=== PATIENT | female | born 1980 | race Caucasian/White ===

== ENCOUNTER → 2017-07-17 | Emergency (ER) | payer MEDICAID, OTHER ==
[~2017-07-17] VITALS: Ht 162.6 cm; Wt 99.8 kg
[~2017-07-17] MED LIST: ANTACID SUSP 30 ML UDC (MYLANTA) PO ONE; ASPIRIN 81 MG CHEW (CHILDREN'S ASA) PO ONE; KCL 10 MEQ TAB (MICRO K) PO ONE; LIDOCAINE 2% VISCOUS 15 ML UDC PO ONE; OMEP20TA7 PO
[2017-07-17 01:48] VITALS: BP 138/85
[2017-07-17 02:17] LABS: BASOPHILS % (AUTO) 1 % (0-10); EOSINOPHILS # (AUTO) 0.2 10^3/uL (0.0-0.3); EOSINOPHILS % (AUTO) 2 % (0-10); HEMATOCRIT 38 % (35-52); HEMOGLOBIN 12.6 G/DL (11.5-16.0); LYMPHOCYTES # (AUTO) 3.1 X 10^3 (1.0-4.0); LYMPHOCYTES % (AUTO) 37 % (12-44); MEAN CORPUSCULAR HEMOGLOBIN 31 PG (25-34); MEAN CORPUSCULAR HGB CONC 33 G/DL (32-36); MEAN CORPUSCULAR VOLUME 92 FL (80-99); MEAN PLATELET VOLUME 11.2 FL (7.4-10.4); MONOCYTES # (AUTO) 0.5 X 10^3 (0.0-1.0); MONOCYTES % (AUTO) 6 % (0-12); NEUTROPHILS # (AUTO) 4.5 X 10^3 (1.8-7.8); NEUTROPHILS % (AUTO) 55 % (42-75); PLATELET COUNT 200 10^3/uL (130-400); RED CELL DISTRIBUTION WIDTH 12.3 % (10.0-14.5); WHITE BLOOD COUNT 8.3 10^3/uL (4.3-11.0)
[2017-07-17 02:20] LABS: PROTHROMBIN TIME PATIENT 13.1 SEC (12.2-14.7)
[2017-07-17 02:32] LABS: ALANINE AMINOTRANSFERASE 10 U/L (0-55); ALBUMIN 3.5 GM/DL (3.2-4.5); ALKALINE PHOSPHATASE 78 U/L (40-136); BILIRUBIN,TOTAL 0.2 MG/DL (0.1-1.0); BUN/CREATININE RATIO 11; CALCIUM 8.5 MG/DL (8.5-10.1); CARBON DIOXIDE 23 MMOL/L (21-32); CHLORIDE 108 MMOL/L (98-107); CREATININE SERUM 0.81 MG/DL (0.60-1.30); GFR ESTIMATED > 60; GLUCOSE 89 MG/DL (70-105); LIPASE 8 U/L (8-78); MAGNESIUM 1.8 MG/DL (1.8-2.4); POTASSIUM 3.3 MMOL/L (3.6-5.0); SODIUM 142 MMOL/L (135-145); TOTAL PROTEIN 6.6 GM/DL (6.4-8.2)
[2017-07-17 02:38] LABS: MYOGLOBIN SERUM 35.8 NG/ML (10.0-92.0)
--- NOTE | 2017-07-17 02:58 | ED Chest Pain ---
General Chief Complaint: Chest Pain Stated Complaint: CHEST TIGHT-PRESSURE,COUGHING Source: patient Exam Limitations: no limitations History of Present Illness Time seen by provider: 01:53 Initial Comments This 37-year-old woman presents to the emergency room with atypical chest pain described as a heaviness or tightness originating in the epigastrium and pushing up toward the throat. The pain is intermittent and she does not identify any exacerbating or alleviating factors. She does not notice it as much when she is up and active. She does take Tums for GERD and states that sometimes helps. She also had some back pain for which she took ibuprofen. She states ibuprofen did help with the back pain but not the chest and epigastric pain. She admits to tobacco use. Allergies and Home Medications Allergies Coded Allergies: No Known Drug Allergies (Unverified , 07/17/17) Home Medications Omeprazole 20 Mg Tablet.dr, 20 MG PO BID, #60 Prescribed by: JENNA SIEGEL on 07/17/17 0258 Review of Systems Constitutional: no symptoms reported EENTM: No Symptoms Reported Respiratory: See HPI Cardiovascular: See HPI Gastrointestinal: See HPI Genitourinary: No Symptoms Reported Musculoskeletal: no symptoms reported Skin: no symptoms reported Psychiatric/Neurological: No Symptoms Reported Endocrine: No Symptoms Reported Past Qveatbd-Ngcrbs-Ufxiun Hx Patient Social History Recent Foreign Travel: No Contact w/Someone Who Travel: No Surgeries Surgeries: Breast (biopsy), Hysterectomy, Tubal Ligation Respiratory History of Respiratory Disorde: Yes (tobaccoism) Cardiovascular History of Cardiac Disorders: Yes Cardiac Disorders: Valvular Heart Disease (mitral valve prolapse) Neurological History of Neurological Disord: No Reproductive System : No [facility] [employer] [facility] History: Hysterectomy Genitourinary History of Genitourinary Disor: No Gastrointestinal History of Gastrointestinal Di: Yes Gastrointestinal Disorders: Gastroesophageal Reflux Musculoskeletal History of Musculoskeletal Dis: No Endocrine History of Endocrine Disorders: No HEENT History of HEENT Disorders: No Cancer History of Cancer: No Psychosocial History of Psychiatric Problem: No Integumentary History of Skin or Integumenta: No Family Medical History Significant Family History: Heart Disease, Cancer Physical Exam Vital Signs Capillary Refill : General Appearance: No Apparent Distress, WD/WN HEENT: PERRL/EOMI, Normal ENT Inspection, Pharynx Normal Neck: Normal Inspection Respiratory: Chest Non Tender, Lungs Clear, Normal Breath Sounds, No Accessory Muscle Use, No Respiratory Distress Cardiovascular: Regular Rate, Rhythm, No Edema, No Murmur Gastrointestinal: Normal Bowel Sounds, Non Tender, Soft Extremity: Normal Capillary Refill, Normal Inspection, Non Tender, No Calf Tenderness, No Pedal Edema, Other (negative Alonso) Neurologic/Psychiatric: Alert, Oriented x3, No Motor/Sensory Deficits, Normal Mood/Affect, 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 Skin: Normal Color, Warm/Dry Progress/Results/Core Measures Results/Orders Lab Results Laboratory Tests Test 07/17/17 01:55 Range/Units White Blood Count 8.3 4.3-11.0 10^3/uL Red Blood Count 4.10 L 4.35-5.85 10^6/uL Hemoglobin 12.6 11.5-16.0 G/DL Hematocrit 38 35-52 % Mean Corpuscular Volume 92 80-99 FL Mean Corpuscular Hemoglobin 31 25-34 PG Mean Corpuscular Hemoglobin Concent 33 32-36 G/DL Red Cell Distribution Width 12.3 10.0-14.5 % Platelet Count 200 130-400 10^3/uL Mean Platelet Volume 11.2 H 7.4-10.4 FL Neutrophils (%) (Auto) 55 42-75 % Lymphocytes (%) (Auto) 37 12-44 % Monocytes (%) (Auto) 6 0-12 % Eosinophils (%) (Auto) 2 0-10 % Basophils (%) (Auto) 1 0-10 % Neutrophils # (Auto) 4.5 1.8-7.8 X 10^3 Lymphocytes # (Auto) 3.1 1.0-4.0 X 10^3 Monocytes # (Auto) 0.5 0.0-1.0 X 10^3 Eosinophils # (Auto) 0.2 0.0-0.3 10^3/uL Basophils # (Auto) 0.0 0.0-0.1 10^3/uL Prothrombin Time 13.1 12.2-14.7 SEC INR Comment 1.0 0.8-1.4 Activated Partial Thromboplast Time 30 24-35 SEC Sodium Level 142 135-145 MMOL/L Potassium Level 3.3 L 3.6-5.0 MMOL/L Chloride Level 108 H 98-107 MMOL/L Carbon Dioxide Level 23 21-32 MMOL/L Anion Gap 11 5-14 MMOL/L Blood Urea Nitrogen 9 7-18 MG/DL Creatinine 0.81 0.60-1.30 MG/DL Estimat Glomerular Filtration Rate > 60 BUN/Creatinine Ratio 11 Glucose Level 89 70-105 MG/DL Calcium Level 8.5 8.5-10.1 MG/DL Magnesium Level 1.8 1.8-2.4 MG/DL Total Bilirubin 0.2 0.1-1.0 MG/DL Aspartate Amino Transf (AST/SGOT) 11 5-34 U/L Alanine Aminotransferase (ALT/SGPT) 10 0-55 U/L Alkaline Phosphatase 78 40-136 U/L Myoglobin 35.8 10.0-92.0 NG/ML Troponin I < 0.30 <0.30 NG/ML Total Protein 6.6 6.4-8.2 GM/DL Albumin 3.5 3.2-4.5 GM/DL Lipase 8 8-78 U/L My Orders Orders - JENNA MOSES MD Cbc With Automated Diff (07/17/17 02:06) Magnesium (07/17/17 02:06) Chest 1 View, Ap/Pa Only (07/17/17 02:06) Ekg Tracing (07/17/17 02:06) Cardiac Profile 1 (07/17/17 02:06) Comprehensive Metabolic Panel (07/17/17 02:06) Myoglobin Serum (07/17/17 02:06) Protime With Inr (07/17/17 02:06) Partial Thromboplastin Time (07/17/17 02:06) O2 (07/17/17 02:06) Monitor-Rhythm Ecg Trace Only (07/17/17 02:06) Lipid Panel (07/18/17 06:00) Saline Lock/Iv-Start (07/17/17 02:06) Lipase (07/17/17 02:06) Aspirin Chewable Tablet (Baby Aspirin Ch (07/17/17 02:15) Lidocaine 2% Viscous 15 Ml (Xylocaine Vi (07/17/17 02:15) Antacid Suspension (Mylanta Suspension (07/17/17 02:15) Potassium Chloride (Tablet) (Klor Con Ta (07/17/17 02:45) Medications Given in ED Current Medications Medications Dose Ordered Sig/Bertha Route Start Time Stop Time Status Last Admin Dose Admin Al Hydrox/Mg Hydrox/Simethicone 30 ml ONCE ONCE PO 07/17/17 02:15 07/17/17 02:16 DC 07/17/17 02:12 30 ML Aspirin 324 mg ONCE ONCE PO 07/17/17 02:15 07/17/17 02:16 DC 07/17/17 02:12 324 MG Lidocaine HCl 15 ml ONCE ONCE PO 07/17/17 02:15 07/17/17 02:16 DC 07/17/17 02:12 15 ML Progress Note : Progress Note Workup was unremarkable except for mild hypokalemia. Potassium was replaced orally. GI cocktail was administered which resulted in notable improvement in chest pain and epigastric tenderness on reexamination. Patient's symptoms appear consistent with acid reflux and gastritis, and she was treated accordingly. Discharge instructions were reviewed. She was encouraged to follow up with a primary care provider as soon as possible. ECG Initial ECG Impression Date: Jul 17, 2017 Initial ECG Impression Time: 01:53 Initial ECG Rate: 92 Initial ECG Rhythm: Normal Sinus Initial ECG Intervals: Normal Initial ECG Impression: Normal Comment Normal sinus rhythm with no ST elevation or depression. No abnormal intervals or axis deviation. Diagnostic Imaging Diagonstic Imaging: Xray Plain Films/CT/US/NM/MRI: chest Comments Chest x-ray was viewed by me. Report as yet available. No acute abnormalities were appreciated. Departure Impression Impression: Primary Impression: Atypical chest pain Additional Impressions: Epigastric pain GERD (gastroesophageal reflux disease) Qualified Codes: K21.9 - Gastro-esophageal reflux disease without esophagitis Disposition: 01 HOME, SELF-CARE Condition: Improved Departure-Patient Inst. Decision time for Depature: 02:50 Referrals: NO,LOCAL PHYSICIAN (PCP) Primary Care Physician [facility] Patient Instructions: Chest Pain That Is Not Caused by the Heart (DC), Acid Reflux (Gastroesophageal Reflux Disease), Adult (DC) Add. Discharge Instructions: Take omeprazole as prescribed for at least 2 weeks. Avoid the following: Eating large meals, eating close to bedtime, alcohol, caffeine, carbonation, chocolate, tobacco products, tomato products, citrus fruits and juices, mints, spicy foods, fatty or greasy foods, NSAID medications (ibuprofen, naproxen, Aleve, etc.), or anything else you know irritates your stomach. Return to the ER if symptoms worsen. You may take Tylenol (acetaminophen). You may also take Tums along with omeprazole. Follow-up with a primary care provider in 1 to 2 weeks. All discharge instructions reviewed with patient and/or family. Voiced understanding. Scripts Omeprazole (Omeprazole) 20 Mg Tablet. 20 MG PO BID, #60 TAB Prov: JENNA MOSES MD 07/17/17 JENNA MOSES MD Jul 17, 2017 02:57
--- NOTE | 2017-07-17 07:36 | Diagnostic Imaging Report ---
INDICATION: Cough, congestion FINDINGS: The lungs are clear. The heart and vessels normal. IMPRESSION: Negative. Dictated by: Dictated on workstation # [id number]
== END | disposition home or self-care (01) ==
LOC: ER 01:45
DX: R07.89 Other chest pain (principal); K21.9 Gastro-esophageal reflux disease without esophagitis; Z90.710 Acquired absence of both cervix and uterus; Z98.51 Tubal ligation status; Z82.49 Family history of ischemic heart disease and other diseases of the circulatory system
CPT/HCPCS: 36415; 71045; 80053; 83690; 83735; 83874; 84484; 85025; 85610; 85730; 93005; 93041

== ENCOUNTER 2018-07-05 21:42 | Emergency (ER) | payer MEDICAID ==
[~2018-07-05] VITALS: Ht 162.6 cm; Wt 113.4 kg
[~2018-07-05 21:42] MED LIST changes: -ANTACID SUSP 30 ML UDC (MYLANTA) PO ONE; -ASPIRIN 81 MG CHEW (CHILDREN'S ASA) PO ONE; -KCL 10 MEQ TAB (MICRO K) PO ONE; -LIDOCAINE 2% VISCOUS 15 ML UDC PO ONE
[2018-07-05] MEDS ORDERED: LACTATED RINGERS 1,000 ML IV ONE (22:35)
[2018-07-05] MEDS ORDERED: FAMOTIDINE 20 MG (PEPCID) TABLET PO STA (22:35)
--- NOTE | 2018-07-05 22:41 | ED Abdominal Pain ---
General Chief Complaint: Abdominal/GI Problems Stated Complaint: UPPER ABD PAIN AND SWELLING Nursing Triage Note: UPPER ABDOMINAL PRESSURE, REFLUX. Sepsis Screen: No Definite Risk Source of Information: Patient, Other Exam Limitations: No Limitations History of Present Illness Date Seen by Provider: Jul 05, 2018 Time Seen by Provider: 22:28 Initial Comments Patient presents to ER by private conveyance with chief complaint that she's having some midepigastric abdominal pain for the past day that is progressively getting worse. She says it is difficult for her to lie down and sit up or bend over. She says she's been having these intermittent pain for the past 3 or 4 months. She is obese, has a hysterectomy secondary to hemorrhage and 38 years old. Other than her transvaginal hysterectomy and she's had no other abdominal surgeries. She presented a few months ago for this same pain and at that time she was told that it was GERD and was put on an antacid which helped for a couple months and she stopped taking it. She's not taken any antacids recently. She's not taken any Tylenol or Motrin for her pain. She rates it as severe worse with movement. She denies alcohol consumption or history of pancreatitis. She denies diabetes or other medical history but does not follow with any primary care doctor. She did not follow up for EGD or colonoscopy. She denies fevers cough shortness of breath. Allergies and Home Medications Allergies Coded Allergies: Sulfa (Sulfonamide Antibiotics) (Verified Allergy, Unknown, 07/05/18) Home Medications Unable to Obtain Active Prescriptions or Reported Meds Patient Home Medication List Home Medication List Reviewed: Yes Review of Systems Review of Systems Constitutional: No chills, No fever; malaise EENTM: No Blurred Vision, No Double Vision Respiratory: Denies Cough, Denies Shortness of Air Cardiovascular: Denies Chest Pain, Denies Edema Gastrointestinal: See HPI, Abdomen Distended, Abdominal Pain; Denies Constipated, Denies Diarrhea; Nausea; Denies Poor Appetite, Denies Poor Fluid Intake, Denies Vomiting Genitourinary: Denies Burning, Denies Discharge Musculoskeletal: No back pain, No joint pain Skin: No pruritus, No rash Psychiatric/Neurological: Denies Headache, Denies Numbness Past Hwkdkca-Ecotvl-Xdxzok Hx Patient Social History Alcohol Use: Denies Use Recreational Drug Use: No Smoking Status: Current Everyday Smoker Type Used: Cigarettes Recent Foreign Travel: No Contact w/Someone Who Travel: No Recent Infectious Disease Expo: No Recent Hopitalizations: No Immunizations Up To Date Tetanus Booster (TDap): Unknown Seasonal Allergies Seasonal Allergies: No Past Medical History Surgeries: Yes Breast, Hysterectomy, Tubal Ligation Respiratory: No Cardiac: Yes Valvular Heart Disease Neurological: No : 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 oz. 113.671615nm; BMI Method:Stated General Appearance: WD/WN, no apparent distress HEENT: PERRL/EOMI, normal ENT inspection, TMs normal, pharynx normal Neck: non-tender, full range of motion, supple, normal inspection Respiratory: chest non-tender, lungs clear, normal breath sounds, no respiratory distress, no accessory muscle use Cardiovascular: normal peripheral pulses, regular rate, rhythm Peripheral Pulses: 2+ Radial Pulses (R), 2+ Radial Pulses (L) Gastrointestinal: normal bowel sounds, soft, tenderness Progress/Results/Core Measures Results/Orders Lab Results Laboratory Tests Test 07/05/18 22:40 07/05/18 22:45 Range/Units Urine Color YELLOW Urine Clarity CLEAR Urine pH 6 5-9 Urine Specific [facility] 1.015 L 1.016-1.022 Urine Protein NEGATIVE NEGATIVE Urine Glucose (UA) NEGATIVE NEGATIVE Urine Ketones NEGATIVE NEGATIVE Urine Nitrite NEGATIVE NEGATIVE Urine Bilirubin NEGATIVE NEGATIVE Urine Urobilinogen NORMAL NORMAL MG/DL Urine Leukocyte Esterase 2+ H NEGATIVE Urine RBC (Auto) NEGATIVE NEGATIVE Urine RBC 0-5 /HPF Urine WBC 2-5 /HPF Urine Squamous Epithelial Cells 0-2 /HPF Urine Crystals NONE /LPF Urine Bacteria NONE /HPF Urine Casts NONE /LPF Urine Mucus NEGATIVE /LPF Urine Trichomonas FEW H /HPF Urine Culture Indicated NO Urine Opiates Screen NEGATIVE NEGATIVE Urine Oxycodone Screen NEGATIVE NEGATIVE Urine Methadone Screen NEGATIVE NEGATIVE Urine Propoxyphene Screen NEGATIVE NEGATIVE Urine Barbiturates Screen NEGATIVE NEGATIVE Ur Tricyclic Antidepressants Screen NEGATIVE NEGATIVE Urine Phencyclidine Screen NEGATIVE NEGATIVE Urine Amphetamines Screen POSITIVE H NEGATIVE Urine Methamphetamines Screen POSITIVE H NEGATIVE Urine Benzodiazepines Screen NEGATIVE NEGATIVE Urine Cocaine Screen NEGATIVE NEGATIVE Urine Cannabinoids Screen NEGATIVE NEGATIVE White Blood Count 8.8 4.3-11.0 10^3/uL Red Blood Count 4.46 4.35-5.85 10^6/uL Hemoglobin 13.1 11.5-16.0 G/DL Hematocrit 39 35-52 % Mean Corpuscular Volume 88 80-99 FL Mean Corpuscular Hemoglobin 29 25-34 PG Mean Corpuscular Hemoglobin Concent 34 32-36 G/DL Red Cell Distribution Width 13.1 10.0-14.5 % Platelet Count 233 130-400 10^3/uL Mean Platelet Volume 11.0 H 7.4-10.4 FL Neutrophils (%) (Auto) 61 42-75 % Lymphocytes (%) (Auto) 31 12-44 % Monocytes (%) (Auto) 7 0-12 % Eosinophils (%) (Auto) 1 0-10 % Basophils (%) (Auto) 0 0-10 % Neutrophils # (Auto) 5.4 1.8-7.8 X 10^3 Lymphocytes # (Auto) 2.8 1.0-4.0 X 10^3 Monocytes # (Auto) 0.6 0.0-1.0 X 10^3 Eosinophils # (Auto) 0.1 0.0-0.3 10^3/uL Basophils # (Auto) 0.0 0.0-0.1 10^3/uL Prothrombin Time 13.1 12.2-14.7 SEC INR Comment 1.0 0.8-1.4 Activated Partial Thromboplast Time 34 24-35 SEC Sodium Level 139 135-145 MMOL/L Potassium Level 3.7 3.6-5.0 MMOL/L Chloride Level 105 98-107 MMOL/L Carbon Dioxide Level 21 21-32 MMOL/L Anion Gap 13 5-14 MMOL/L Blood Urea Nitrogen 9 7-18 MG/DL Creatinine 0.85 0.60-1.30 MG/DL Estimat Glomerular Filtration Rate > 60 BUN/Creatinine Ratio 11 Glucose Level 98 70-105 MG/DL Calcium Level 9.1 8.5-10.1 MG/DL Corrected Calcium 8.9 8.5-10.1 MG/DL Magnesium Level 2.4 1.8-2.4 MG/DL Total Bilirubin 0.5 0.1-1.0 MG/DL Aspartate Amino Transf (AST/SGOT) 15 5-34 U/L Alanine Aminotransferase (ALT/SGPT) 26 0-55 U/L Alkaline Phosphatase 103 40-136 U/L Total Protein 8.1 6.4-8.2 GM/DL Albumin 4.2 3.2-4.5 GM/DL Lipase 11 8-78 U/L Serum Test, Qualitative NEGATIVE NEGATIVE Serum Alcohol < 10 <10 MG/DL My Orders Orders - AJAY BROTHERS Alcohol (07/05/18 22:35) Cbc With Automated Diff (07/05/18 22:35) Comprehensive Metabolic Panel (07/05/18 22:35) Drug Screen Stat (Urine) (07/05/18 22:35) Hcg,Qualitative Serum (07/05/18 22:35) Lipase (07/05/18 22:35) Magnesium (07/05/18 22:35) Protime With Inr (07/05/18 22:35) Partial Thromboplastin Time (07/05/18 22:35) Ua Culture If Indicated (07/05/18 22:35) Ct Abdomen/Pelvis W (07/05/18 22:35) Chest Pa/Lat (2 View) (07/05/18 22:35) Saline Lock/Iv-Start (07/05/18 22:35) Lactated Ringers (Lr 1000 Ml Iv Solution (07/05/18 22:35) Ondansetron Injection (Zofran Injectio (07/05/18 22:45) Ketorolac Injection (Toradol Injection) (07/05/18 22:45) Lidocaine 2% Viscous 15 Ml (Xylocaine Vi (07/05/18 22:45) Famotidine Tablet (Pepcid Tablet) (07/05/18 22:35) Antacid Suspension (Mylanta Suspension (07/05/18 22:45) Iohexol Injection (Omnipaque 350 Mg/Ml 1 (07/05/18 23:45) Ns (Ivpb) (Sodium Chloride 0.9%) (07/05/18 23:45) Medications Given in ED Current Medications Medications Dose Ordered Sig/Bertha Route Start Time Stop Time Status Last Admin Dose Admin Al Hydrox/Mg Hydrox/Simethicone 30 ml ONCE ONCE PO 07/05/18 22:45 07/05/18 22:46 DC 07/05/18 22:47 30 ML Iohexol 100 ml ONCE ONCE IV 07/05/18 23:45 07/05/18 23:46 UNV 07/05/18 23:42 100 ML Ketorolac Tromethamine 30 mg ONCE ONCE IVP 07/05/18 22:45 07/05/18 22:46 DC 07/05/18 22:47 30 MG Lactated Ringer's 1,000 ml @ 0 mls/hr Q0M ONCE IV 07/05/18 22:35 07/05/18 22:39 DC 07/05/18 22:47 0 MLS/HR Lidocaine HCl 15 ml ONCE ONCE PO 07/05/18 22:45 07/05/18 22:46 DC 07/05/18 22:47 15 ML Ondansetron HCl 4 mg ONCE ONCE IVP 07/05/18 22:45 07/05/18 22:46 DC 07/05/18 22:47 4 MG Sodium Chloride 80 ml ONCE ONCE IV 07/05/18 23:45 07/05/18 23:46 UNV 07/05/18 23:42 80 ML Vital Signs/I&O 07/05/18 07/05/18 22:15 22:47 Temp 98.8 98.8 Pulse 97 Resp 18 B/P (MAP) 166/99 (121) Pulse Ox 98 O2 Delivery Room Air Blood Pressure Mean: 121 Progress Progress Note : Time: 23:52 Progress Note Differential includes pancreatic head as versus gallbladder versus peptic ulcer disease. CT, GI cocktail, Toradol, Zofran and labs and urine. Urine drug screen. Past history of methamphetamine use. Diagnostic Imaging Diagonstic Imaging: CT (with contrast) Plain Films/CT/US/NM/MRI: abdomen, pelvis Comments No acute intra-abdominal process noted. Appendix not well visualized but no secondary signs of appendicitis. Reviewed: Reviewed by Me Departure Impression Primary Impression: Methamphetamine abuse Additional Impression: Acute abdominal pain Disposition: 01 HOME, SELF-CARE Condition: Improved Departure-Patient Inst. Decision time for Depature: 23:54 Referrals: NO,LOCAL PHYSICIAN (PCP/Family) Primary Care Physician Patient Instructions: Acute Abdomen (Belly Pain), Adult (DC), LOCAL PHYSICIAN LIST Add. Discharge Instructions: Tylenol, Motrin and rest. If your abdominal pain has not resolved in the next few days follow-up with a primary care doctor to consider getting set up for ultrasound. All discharge instructions reviewed with patient and/or family. Voiced understanding. Scripts Unable to Obtain Active Prescriptions or Reported Meds AJAY BROTHERS Jul 05, 2018 22:41
[2018-07-05] MEDS ORDERED: ONDANSETRON 4 MG/2 ML (SDV) Z0FRAN IVP ONE (22:45)
[2018-07-05] MEDS ORDERED: ANTACID SUSP 30 ML UDC (MYLANTA) PO ONE (22:45)
[2018-07-05] MEDS ORDERED: LIDOCAINE 2% VISCOUS 15 ML UDC PO ONE (22:45)
[2018-07-05] MEDS ORDERED: KETOROLAC 30 MG/ML VIAL IVP ONE (22:45)
[2018-07-05 22:56] LABS: BASOPHILS % (AUTO) 0 % (0-10); EOSINOPHILS # (AUTO) 0.1 10^3/uL (0.0-0.3); EOSINOPHILS % (AUTO) 1 % (0-10); HEMATOCRIT 39 % (35-52); HEMOGLOBIN 13.1 G/DL (11.5-16.0); LYMPHOCYTES # (AUTO) 2.8 X 10^3 (1.0-4.0); LYMPHOCYTES % (AUTO) 31 % (12-44); MEAN CORPUSCULAR HEMOGLOBIN 29 PG (25-34); MEAN CORPUSCULAR HGB CONC 34 G/DL (32-36); MEAN CORPUSCULAR VOLUME 88 FL (80-99); MONOCYTES # (AUTO) 0.6 X 10^3 (0.0-1.0); MONOCYTES % (AUTO) 7 % (0-12); NEUTROPHILS # (AUTO) 5.4 X 10^3 (1.8-7.8); NEUTROPHILS % (AUTO) 61 % (42-75); PLATELET COUNT 233 10^3/uL (130-400); RED BLOOD COUNT 4.46 10^6/uL (4.35-5.85); RED CELL DISTRIBUTION WIDTH 13.1 % (10.0-14.5); WHITE BLOOD COUNT 8.8 10^3/uL (4.3-11.0)
[2018-07-05 22:56] LABS: BILIRUBIN,URINE NEGATIVE (NEGATIVE); CLARITY,URINE CLEAR; COLOR,URINE YELLOW; GLUCOSE, URINE (UA) NEGATIVE (NEGATIVE); KETONES,URINE NEGATIVE (NEGATIVE); LEUKOCYTE ESTERASE ,URINE 2+ (NEGATIVE); NITRITE,URINE NEGATIVE (NEGATIVE); PH,URINE 6 (5-9); PROTEIN,URINE NEGATIVE (NEGATIVE); UROBILINOGEN,URINE NORMAL (NORMAL)
[2018-07-05 23:03] LABS: RBC,URINE 0-5 /HPF
[2018-07-05 23:04] LABS: SQUAMOUS EPITHELIAL CELL,UR 0-2 /HPF; TRICHOMONAS,URINE FEW /HPF
[2018-07-05 23:08] LABS: PROTHROMBIN TIME PATIENT 13.1 SEC (12.2-14.7)
[2018-07-05 23:08] LABS: AMPHETAMINE SCREEN, URINE POSITIVE (NEGATIVE); BARBITURATE SCREEN URINE NEGATIVE (NEGATIVE); BENZODIAZEPINES SCREEN URINE NEGATIVE (NEGATIVE); CANNABINOID SCREEN, URINE NEGATIVE (NEGATIVE); COCAINE SCREEN URINE NEGATIVE (NEGATIVE); METHADONE STAT NEGATIVE (NEGATIVE); METHAMPHETAMINE SCREEN URINE S POSITIVE (NEGATIVE); OPIATE SCREEN URINE NEGATIVE (NEGATIVE); OXYCODONE STAT NEGATIVE (NEGATIVE); PROPOXYPHENE STAT NEGATIVE (NEGATIVE); TRICYCLIC ANTIDEPRESSANTS SCRE NEGATIVE (NEGATIVE)
[2018-07-05 23:19] LABS: ALANINE AMINOTRANSFERASE 26 U/L (0-55); ALBUMIN 4.2 GM/DL (3.2-4.5); ALKALINE PHOSPHATASE 103 U/L (40-136); BILIRUBIN,TOTAL 0.5 MG/DL (0.1-1.0); BUN/CREATININE RATIO 11; CALCIUM 9.1 MG/DL (8.5-10.1); CARBON DIOXIDE 21 MMOL/L (21-32); CHLORIDE 105 MMOL/L (98-107); CREATININE SERUM 0.85 MG/DL (0.60-1.30); GFR ESTIMATED > 60; GLUCOSE 98 MG/DL (70-105); LIPASE 11 U/L (8-78); MAGNESIUM 2.4 MG/DL (1.8-2.4); POTASSIUM 3.7 MMOL/L (3.6-5.0); SODIUM 139 MMOL/L (135-145); TOTAL PROTEIN 8.1 GM/DL (6.4-8.2)
[2018-07-05] MEDS ORDERED: IOHEXOL 350 MG/ML 100 ML (OMNIPAQUE 350) VIAL IV ONE (23:45)
[2018-07-05] MEDS ORDERED: NS 250 ML (IVPB) BAG IV ONE (23:45)
[2018-07-06 00:04] VITALS: BP 176/79
--- NOTE | 2018-07-06 07:21 | Diagnostic Imaging Report ---
EXAMINATION: CHEST (PA AND LATERAL) CLINICAL INDICATION: 38-year-old female, upper abdominal pain. COMPARISON: July 17, 2017. FINDINGS: Heart size and mediastinal contours are unremarkable. There is no identified pneumothorax. There is no pleural effusion. There is no identified focal airspace consolidation. IMPRESSION: No identified acute cardiopulmonary abnormality. Dictated by: Dictated on workstation # [id number]
--- NOTE | 2018-07-06 07:27 | Diagnostic Imaging Report ---
PROCEDURE: CT abdomen and pelvis with contrast. TECHNIQUE: Multiple contiguous axial images were obtained through the abdomen and pelvis after administration of intravenous contrast. DATE: July 05, 2018. COMPARISON: None. INDICATION: 38-year-old female, upper abdominal pain. FINDINGS: The visualized portions of the lung bases are clear. The heart is not enlarged. There is no identified pericardial effusion. The liver is normal in size and contour. There is no identified liver lesion. The main, right, and left portal veins are patent. The gallbladder is unremarkable. There is no identified intrahepatic or extrahepatic bile duct dilation. The main pancreatic duct is not abnormally dilated. Unremarkable appearance of the pancreatic parenchyma. The spleen is normal in size. There is a left adrenal nodule on axial image 29 which measures 1.1 cm in size. Post contrast attenuation measures 28 Hounsfield units. Unremarkable appearance of the renal parenchyma. Urinary collecting systems are not distended. There is no identified renal or ureteral stone. There is a left-sided pelvic calcification likely relating to a phlebolith. The urinary bladder is underdistended and not well evaluated. The uterus is not seen and may be surgically absent. The intestinal tract is not distended. The appendix is not well seen. There are no secondary findings to suggest acute appendicitis. There is no free intraperitoneal air. There is no drainable fluid collection. There is no free pelvic fluid. There is no identified abnormally enlarged lymph node in the abdomen or pelvis which meets CT size criteria for adenopathy. There is a synovial herniation pit at the left femoral head neck junction and also on the right. There are mild degenerative changes of the spine. There is no identified acute bony abnormality. IMPRESSION: CT ABDOMEN AND PELVIS. 1. No identified acute abnormality within the abdomen or pelvis. Dictated by: Dictated on workstation # [id number]
== END 2018-07-06 00:04 | disposition home or self-care (01) ==
LOC: EDUNIT# 21:42 → ER 21:44
DX: F15.10 Other stimulant abuse, uncomplicated (principal); R10.13 Epigastric pain; E66.9 Obesity, unspecified; K21.9 Gastro-esophageal reflux disease without esophagitis; F17.210 Nicotine dependence, cigarettes, uncomplicated; Z88.2 Allergy status to sulfonamides; Z98.51 Tubal ligation status; Z82.49 Family history of ischemic heart disease and other diseases of the circulatory system; Z90.710 Acquired absence of both cervix and uterus; Z98.890 Other specified postprocedural states
CPT/HCPCS: 36415; 71046; 74177; 80053; 80306; 80320; 81000; 83690; 83735; 84703; 85025; 85610; 85730